=== PATIENT | female | born 1980 | race Caucasian/White ===

== ENCOUNTER 2019-01-03 14:31 | Emergency (ER) | payer OTHER ==
--- NOTE | 2019-01-03 15:03 | EDM.PDOC ---
ED HPI GENERAL MEDICAL PROBLEM - General Chief Complaint: General Stated Complaint: INCISION INFECTION Time Seen by Provider: 01/03/19 14:40 Source of Information: Reports: Patient History Limitations: Reports: No Limitations - History of Present Illness INITIAL COMMENTS - FREE TEXT/NARRATIVE: According to patient she claims she had fever yesterday. Fever came on suddenly. Temp was as high as 101F, had intermittent fever all day yesterday. No chills. No lethargy. Today morning noted some redness and painful rash on her abdomen. The redness has locally spread. no itching in the rash. No tingling or numbness in the rash. Presently is afebrile. No nausea or vomiting.No cough. No exposure to poison Adela or any other chemicals. Pt has had colon cancer and had partial colectomy. the rash has developed around the surgical scar, hence patient concerned. Onset: Gradual Onset Date: 01/02/19 Location: Reports: Abdomen Quality: Reports: Ache Severity: Moderate Improves with: Reports: None Worsens with: Reports: None Associated Symptoms: Reports: Fever/Chills, Rash. Denies: Confusion, Chest Pain , Cough, Diaphoresis, Headaches, Nausea/Vomiting, Seizure, Shortness of Breath, Syncope, Weakness Treatments DITCH REPAIRER: Reports: Acetaminophen - Related Data Allergies Allergy/AdvReac Type Severity Reaction Status Date / Time ketorolac [From Toradol] Allergy Anaphylactic Verified 01/03/19 14:51 Shock ED ROS GENERAL - Review of Systems Review Of Systems: See Below Constitutional: Denies: Fever, Chills HEENT: Denies: Rhinitis, Throat Pain Respiratory: Denies: Cough, Sputum Cardiovascular: Denies: Chest Pain, Lightheadedness GI/Abdominal: Denies: Abdominal Pain, Nausea, Vomiting : Denies: Dysuria, Frequency Musculoskeletal: Denies: Joint Pain, Joint Swelling Skin: Reports: Rash, Erythema. Denies: Bruising, Pruritis, Wound Neurological: Denies: Confusion, Dizziness, Headache, Numbness, Tingling ED EXAM, GENERAL - Physical Exam Exam: See Below Exam Limited By: No Limitations General Appearance: Alert, WD/WN, No Apparent Distress, Other (afebrile) Eye Exam: Bilateral Eye: EOMI, PERRL Ears: Normal External Exam, Normal Canal, Hearing Grossly Normal, Normal TMs Ear Exam: Bilateral Ear: Auricle Normal, Canal Normal, TM normal Nose: Normal Inspection, Normal Mucosa, No Blood Throat/Mouth: Normal Inspection, Normal Lips, Normal Teeth, Normal Gums, Normal Oropharynx, Normal Voice, No Airway Compromise Head: Atraumatic, Normocephalic Neck: Normal Inspection, Supple, Non-Tender, Full Range of Motion Respiratory/Chest: No Respiratory Distress, Lungs Clear, Normal Breath Sounds, No Accessory Muscle Use, Chest Non-Tender Cardiovascular: Normal Peripheral Pulses, Regular Rate, Rhythm, No Edema, No Gallop, No JVD, No Murmur, No Rub GI/Abdominal: Normal Bowel Sounds, Soft Extremities: Normal Inspection, Normal Range of Motion, Non-Tender, Normal Capillary Refill, No Pedal Edema Neurological: Alert, Oriented, CN II-XII Intact, Normal Cognition, Normal Gait, Normal Reflexes, No Motor/Sensory Deficits Skin Exam: Warm, Other (abdominal wall: there is a midline infraumbilical scar noted. There is erythema spreading on either side of the scar approximately 6 cm on either side of the scar. there rash is rectangular. there are streaks of lymphangitis spreading outwards from the rash. On palpation the rash is warm and tender. there is a indurated subcutaneous swelling in the abdominl wall, about 3cmby 4cm.) Course - Vital Signs Text/Narrative:: Pt reassured that she does have cellulitis of the abdominal wall around the surgical scar with lymphangitis. Her CBC is normal with white count of 9.3K. She does have indurated subcutaneous tender mass mass. I have started her on augmentin 875mg twice daily for 10 days. tylenol 650mg every 6 hrs as needed for fever and pain. Advised intermittent heat to the area 3-4 times daily. There redness should improve in next 48 hrs. If the swelling or redness worsens , should return for recheck. If the redness or swelling persists even after the antibiotics or worsens on antibiotics,should see hr primary care provider to rule out scar metastasis or seeding from her pervious colon cancer. - Orders/Labs/Meds Labs: Laboratory Tests 01/03/19 Range/Units 15:10 WBC 9.3 (4.0-11.0) K/uL RBC 4.84 (3.80-5.80) M/uL Hgb 15.1 (11.5-16.5) g/dL Hct 44.3 (37.0-47.0) % MCV 92 (76-96) fL MCH 31.2 (27.0-32.0) pg MCHC 34.1 (31.0-35.0) g/dL RDW 12.6 (11.0-16.0) % Plt Count 256 (150-500) K/uL MPV 10.4 H (6.0-10.0) fL Neut % (Auto) 63.8 (45.0-70.0) % Lymph % (Auto) 22.3 (20.0-40.0) % [place] % (Auto) 11.2 H (3.0-10.0) % Eos % (Auto) 2.3 (1.0-5.0) % Baso % (Auto) 0.4 (0.0-0.5) % Neut # (Auto) 5.90 (2.00-7.50) K/uL Lymph # (Auto) 2.06 (1.50-4.00) K/uL [place] # (Auto) 1.04 H (0.20-0.80) K/uL Eos # (Auto) 0.21 (0.04-0.40) K/uL Baso # (Auto) 0.04 (0.02-0.10) K/uL Departure - Departure Time of Disposition: 15:30 Disposition: Home, Self-Care 01 Condition: Fair Clinical Impression: Abdominal wall cellulitis - Discharge Information *PRESCRIPTION DRUG MONITORING PROGRAM REVIEWED*: Not Applicable *COPY OF PRESCRIPTION DRUG MONITORING REPORT IN PATIENT ASHER: Not Applicable Forms: ED Department Discharge Additional Instructions: Pt reassured that she does have cellulitis of the abdominal wall around the surgical scar with lymphangitis. Her CBC is normal with white count of 9.3K. She does have indurated subcutaneous tender mass mass. I have started her on augmentin 875mg twice daily for 10 days. tylenol 650mg every 6 hrs as needed for fever and pain. Advised intermittent heat to the area 3-4 times daily. There redness should improve in next 48 hrs. If the swelling or redness worsens , should return for recheck. If the redness or swelling persists even after the antibiotics or worsens on antibiotics,should see hr primary care provider to rule out scar metastasis or seeding from her pervious colon cancer. - Problem List & Annotations (1) Abdominal wall cellulitis SNOMED Code(s): 35133647 Code(s): L03.311 - CELLULITIS OF ABDOMINAL WALL Status: Acute - Problem List Review Problem List Initiated/Reviewed/Updated: Yes - Assessment/Plan Assessment:: Abdominal wall cellulitis Plan: Pt reassured that she does have cellulitis of the abdominal wall around the surgical scar with lymphangitis. Her CBC is normal with white count of 9.3K. She does have indurated subcutaneous tender mass mass. I have started her on augmentin 875mg twice daily for 10 days. tylenol 650mg every 6 hrs as needed for fever and pain. Advised intermittent heat to the area 3-4 times daily. There redness should improve in next 48 hrs. If the swelling or redness worsens , should return for recheck. If the redness or swelling persists even after the antibiotics or worsens on antibiotics,should see hr primary care provider to rule out scar metastasis or seeding from her pervious colon cancer.
[2019-01-03] MEDS ORDERED: Amoxicillin/Clavulanate K 875-125 MG Tab ONE (15:20)
== END 2019-01-03 15:29 | disposition home or self-care (01) ==
LOC: LB.ED 14:31
DX: L03.311 Cellulitis of abdominal wall (principal); Z88.6 Allergy status to analgesic agent; Z85.038 Personal history of other malignant neoplasm of large intestine
CPT/HCPCS: 36415; 85025; 99282; A9270-GY